=== PATIENT | male | born 1940 | race Caucasian/White ===

== ENCOUNTER 2021-08-31 10:25 | Outpatient (CLI) | payer MEDICARE ==
[2021-08-31 12:37] LABS: Mean Corpuscular HGB CONC 33.1 g/dL (32.0-36.0); Mean Corpuscular Hemoglobin 29.4 pg (27.0-33.0); Mean Corpuscular Volume 88.7 fl (81.2-95.1); Mean Platelet Volume 8.5 fl (7.4-10.4); Platelet Count 364 10x3/uL (150-450); RBC Distribution Width 13.2 % (11.5-14.5); Red Blood Cell (RBC) Count 4.77 10x6/uL (4.32-5.72); White Blood Cell (WBC) Count 5.3 10x3/uL (3.5-10.5)
[2021-08-31 20:19] LABS: SARS-CoV-2 PCR by NAA Not Detected (NotDetected)
== END 2021-08-31 10:26 | disposition home or self-care (01) ==
LOC: CSHLAB 10:25
PROVIDERS: ATTEND Podiatrist
DX: Z01.818 Encounter for other preprocedural examination (principal); Z20.822 Contact with and (suspected) exposure to COVID-19
CPT/HCPCS: 85027; 93005; 93010; U0003; U0005

== ENCOUNTER 2021-09-05 06:54 | Day surgery (SDC) | payer MEDICARE ==
[2021-08-30 10:13] VITALS: BMI 24.3
[2021-09-05] MEDS ORDERED: Lidocaine 1% MPF 2 ML VIAL ONE (07:49)
[2021-09-05] MEDS ORDERED: Neomycin-Polymyxin 1 ML AMP ONE (08:18)
[2021-09-05] MEDS ORDERED: Bupivacaine PF 0.5% 30 ML VIAL ONE (08:18)
[2021-09-05] MEDS ORDERED: ceFAZolin 2 GM/Dextrose 50 ML IVPB ONE (09:13)
[2021-09-05] MEDS ORDERED: PROPOFOL 20 ML ONE (09:21)
[2021-09-05] MEDS ORDERED: Ondansetron PF 4 MG/2 ML Vial ONE (09:21)
[2021-09-05] MEDS ORDERED: Lidocaine 2% PF 5 ML VIAL ONE (09:21)
[2021-09-05] MEDS ORDERED: Fentanyl 100 MCG/2 ML VIAL ONE (09:21)
[2021-09-05] MEDS ORDERED: Dexamethasone 4 mg/ml Vial ONE (09:21)
[2021-09-05] MEDS ORDERED: ePHEDrine Sulfate 50 MG/10 ML VIAL ONE (09:54)
== END 2021-09-05 12:45 | disposition home or self-care (01) ==
LOC: CSHSDC 06:54
PROVIDERS: ATTEND Podiatrist
PROC: 0SRN0JZ Replacement of Left Metatarsal-Phalangeal Joint with Synthetic Substitute, Open Approach (ICD-10-PCS; principal; 2021-09-05)
DX: S93.122A Dislocation of metatarsophalangeal joint of left great toe, initial encounter (principal)
CPT/HCPCS: 28291; 73620; 76000; C1776; J0690; J1100; J2001; J2405; J2704; J3010; S0020